=== PATIENT | female | born 1945 | race Caucasian/White ===

== ENCOUNTER 2017-02-20 07:25 | Day surgery (SDC) | payer MEDICARE, BC ==
[~2017-02-20] VITALS: Ht 167.6 cm; Wt 74.8 kg
[~2017-02-20 07:25] MED LIST: CALCIUM + D600 MG PO; CENTRUM PO; LIPITOR20 M1 PO; PAROXETINE20 MG PO; TRIPLE FLE2 PO; TRIPLE OMEGA-3-6-9; VITAMIN C500 MG PO; ZOCOR20 MG PO
[2017-02-20 10:43] VITALS: BP 136/71
== END 2017-02-20 10:25 | disposition home or self-care (01) ==
LOC: ENDO 07:25 → ORM 09:30 → ENDO 09:30
PROVIDERS: ATTEND Surgery
PROC: 0DJD8ZZ Inspection of Lower Intestinal Tract, Via Natural or Artificial Opening Endoscopic (ICD-10-PCS; principal; 2017-02-20)
DX: R19.5 Other fecal abnormalities (principal); K57.30 Diverticulosis of large intestine without perforation or abscess without bleeding